=== PATIENT | female | born 1945 | race Caucasian/White ===

== ENCOUNTER 2017-03-08 06:33 | Day surgery (SDC) | payer OTHER, BC ==
[~2017-03-08] VITALS: Ht 167.6 cm; Wt 88.0 kg
[2017-03-08 07:16] VITALS: BP 164/85
[2017-03-08 12:27] VITALS: BP 130/78
== END 2017-03-08 10:10 | disposition home or self-care (01) ==
LOC: GI 06:33 → OR 07:30 → GI 10:10
PROVIDERS: Internal Medicine Gastroenterology
PROC: 0DBK8ZZ Excision of Ascending Colon, Via Natural or Artificial Opening Endoscopic (ICD-10-PCS; principal; 2017-03-08 07:30)
DX: Z12.11 Encounter for screening for malignant neoplasm of colon (principal); D12.2 Benign neoplasm of ascending colon; Z86.010 Personal history of colon polyps
CPT/HCPCS: 45378; J1200; J1610; J2250; J2310; J3010; J3490